=== PATIENT | female | born 1980 | race Caucasian/White ===

== ENCOUNTER → 2019-09-17 | Outpatient (CLI) | payer OTHER ==
--- NOTE | 2019-09-17 18:49 | Diagnostic Imaging Report ---
Solid-phase gastric emptying study Reason for examination: Nausea; epigastric pain The protocol used for this study is based on the Consensus Recommendations for Gastric Scintigraphy by the [employer] and the Society of [employer]. Clinical information: The patient is not diabetic. The patient has not had prior gastrointestinal surgery. The patient is not on any medications expected to effect gastric motility. The patient has been fasting for at least 6 hours prior to this exam. Radiopharmaceutical: Tc-99m sulfur colloid 1 mCi Report: The radiopharmaceutical was added to 1/2 cup egg whites that were then prepared and served with 2 pieces of white bread toasted, 30 grams of jam and 4 ounces of water. The patient took the meal orally without difficulty. Images were obtained of the abdomen in the anterior and posterior projections at 10 minutes post the meal and at 1, 2, 3, and 4 hours. Uptake was determined from the geometric mean of the anterior and posterior counts and the counts were corrected for decay of the radiolabel. The percent gastric retention of the labeled meal at: 1 hour was 55% (normal 30-90%) 2 hours was 34% (normal <60%) 3 hours was 18% (normal <30%) 4 hours was 10% (normal <10%) Impression: Normal gastric emptying pattern through 3 hours with borderline abnormal gastric retention of 10% of the radiolabeled meal at 4 hours. Signed by: Dr. Esther Vides M.D. on 09/17/2019 6:45 PM
== END ==
LOC: NM 10:15
PROVIDERS: ATTEND Internal Medicine Gastroenterology
DX: R10.13 Epigastric pain (principal); K21.9 Gastro-esophageal reflux disease without esophagitis; K44.9 Diaphragmatic hernia without obstruction or gangrene; K57.30 Diverticulosis of large intestine without perforation or abscess without bleeding; R11.0 Nausea; Z80.0 Family history of malignant neoplasm of digestive organs; Z71.3 Dietary counseling and surveillance; E66.9 Obesity, unspecified; Z86.010 Personal history of colon polyps; Z87.891 Personal history of nicotine dependence
CPT/HCPCS: 78264; 81025; A9541